=== PATIENT | male | born 1960 | race African-American/Black ===

== ENCOUNTER 2017-07-30 20:37 | Inpatient (IN) | payer MEDICAID, OTHER ==
[~2017-07-30] VITALS: Ht 175.3 cm; Wt 83.5 kg
[~2017-07-30 20:37] MED LIST: ACCU FS; ATOR20TA40 PO; CALC600C PO; INSU100S55 SC; MAGN400T11 PO; METFORMIN HYDROCHLORIDE PO; PHOS1PDR4 PO; Pantoprazole Sodium PO
[2017-07-30 20:40] VITALS: BP 143/88
--- NOTE | 2017-07-30 20:44 | NUR ---
BIBA TO ER BED 1
--- NOTE | 2017-07-30 20:45 | NUR ---
56/M BIBA W C/O GENERALIZED WEAKNESS AND FLULIKE SYMPTOMS X 2 DAYS. PT NOTED WITH TACHYPNEA AND SHALLOW RESPIRATIONS , 28RR EVEN WITH ACCESSORY MUSCLE USE, SATS 98% ON RA. GCS 15, AOX4. BS ON SCENE 355, ACCUCHECK 365. REPORTS N/V X1, DENIES SOB/CP/COUGH, DENIES ANY OTHER PAIN. IVF RUNNING WIDE OPEN. PMH: DM, HLD; RX: HUMALOG
[2017-07-30] MEDS ORDERED: NACL 0.9% 500 ML IV ONE ×2 (21:00)
[2017-07-30 21:43] LABS: HEMATOCRIT 50.5 % (36-52); HEMOGLOBIN 15.9 g/dL (12.0-18.0); MEAN CORPUSCULAR HEMOGLOBIN 31 pg (27-31); MEAN CORPUSCULAR HGB CONC 32 g/dL (33-37); MEAN CORPUSCULAR VOLUME 97 fL (80-94); PLATELET COUNT (AUTO) 178 K/uL (140-450); RED BLOOD CELL COUNT(AUTO) 5.21 MIL/uL (4.20-6.10); RED CELL DISTRIBUTION WIDTH 13.5 % (11.6-13.7)
--- NOTE | 2017-07-30 22:00 | NUR ---
Patient appears to be resting comfortably in bed. Vital Signs within normal limits. Respirations even, tachypneic 28 RR, ER MD Cavazos aware
[2017-07-30 22:05] LABS: ALBUMIN 3.7 g/dL (3.4-5.0); ANION GAP 35.2 (8-16); ASPARTATE AMINOTRANSFERASE 12 U/L (15-37); CHLORIDE 105 mmol/L (98-107); CREATININE 1.8 mg/dL (0.7-1.3); GFR ARICAN-AMERICAN 51 mL/min (>90); GLUCOSE 385 mg/dL (74-106); POTASSIUM 5.3 mmol/L (3.5-5.1); SODIUM SERUM 141 mmol/L (136-145); TOTAL BILIRUBIN 0.5 mg/dL (0.0-1.0); UREA NITROGEN, BLOOD 17 mg/dL (7-18)
[2017-07-30 22:09] LABS: CARBON DIOXIDE 6.1 mmol/L (21-32)
[2017-07-30] MEDS ORDERED: SODIUM BICARBONATE 8.4% 100 MEQ in NACL 0.9% 1,000 ML IV SCH (22:10)
[2017-07-30 22:11] LABS: LYMPHOCYTES % (MANUAL) 3 % (20-46); MONOCYTES % (MANUAL) 5 % (5-12)
[2017-07-30] MEDS ORDERED: SODIUM BICARBONATE 8.4% 50 MEQ/50 ML VIAL ONE (22:26)
[2017-07-30] MEDS ORDERED: INSULIN REGULAR, HUMAN 100 UNIT/ML VIAL SUBQ ONE (23:30)
[2017-07-30 23:33] LABS: ACETONE, SERUM SMALL (NEGATIVE)
[2017-07-31] VITALS (14 sets, daily range): BP systolic 108–153; BP diastolic 70–91
[2017-07-31] MEDS ORDERED: NACL 0.9% 1,000 ML IV SCH (00:11)
[2017-07-31] MEDS ORDERED: MORPHINE SULFATE 2 MG/ML SYR IVP PRN (00:15)
--- NOTE | 2017-07-31 00:30 | NUR ---
Patient will be admitted to [facility]. Admited to ICU. Will go to room 3. Belongings list completed. BEDSIDE Report to IRVIN CARIAS. IV PATENT AND INFUSING
--- NOTE | 2017-07-31 00:45 | NUR ---
PT TRANSFERRED FROM ER VIA [facility] WITH 2 NURSES AT 0045. DX WITH DKI. HX OF DM. PT IS AWAKE, ALERT AND ORIENTED X4, VERBALLY RESPONSIVE. NO FEVER. PT IS WITH KUSSMAUL BREATHING, DEEP AND LABORED. BILATERAL LUNG SOUND CLEAR. ACTIVE BOWEL SOUND FROM ALL 4 QUADS. HEART SOUND S1, S2 NOTED. PERIPHERAL LINE TO RIGHT HAND WITH NS WITH SODIUM BICARBONATE 100MEQ. SKIN IS INTACT. BED IS LOW POSITION, HOB ELEVATED 30 DEGREE, CALL LIGHT WITHIN REACH.
--- NOTE | 2017-07-31 01:03 | NUR ---
RECEIVED AND VERIFIED ADMISSION ORDERS FROM DR. RIOS, ON-CALL FOR DR. TOVAR. WILL CARRY OUT.
[2017-07-31] MEDS: ALBUTEROL 0.083% 2.5 MG/3 ML NEBU INH SCH ×4 (01:04→18:37)
[2017-07-31] MEDS ORDERED: DEXTROSE 50% 50 ML SYR IVP PRN (01:30)
[2017-07-31] MEDS ORDERED: BLOOD GLUCOSE MONITORING 1 DEV DEV FS SCH (01:30)
[2017-07-31] MEDS ORDERED: INSULIN HUMAN REGULAR 100 UNITS in NACL 0.9% 100 ML IV SCH ×2 (01:30→01:40)
--- NOTE | 2017-07-31 01:33 | NUR ---
ABG RESULTS REPORTED TO DR. RIOS. NO NEW ORDER AT THIS TIME.
--- NOTE | 2017-07-31 01:40 | NUR ---
BS CHECKED 284 NOTED. PT IS ON INSULIN DRIP 8.1 UNITS/HR. PT IS NO ACUTE DISTRESS NOTED. KUSSMAUL BREATHING NOTED.
--- NOTE | 2017-07-31 02:40 | NUR ---
BS CHECKED 246 NOTED. PT IS ON INSULIN DRIP 8.1 UNITS/HR. PT STOPPED THE KUSSMAUL BREATHING. NO DEEP AND LABORED BREATH NOTED.
--- NOTE | 2017-07-31 03:40 | NUR ---
BS CHECKED 242 NOTED. PT IS IN ASLEEP, AROUSABLE TO VOICE. NO ACUTE DISTRESS NOTE. ST ON THE MONITOR. DENIES PAIN.
--- NOTE | 2017-07-31 04:40 | NUR ---
BS CHECKED 164 NOTED. NO ACUTE DISTRESS NOTED.
--- NOTE | 2017-07-31 05:00 | NUR ---
INSULIN DRIP DECREASED TO 0.05 UNIT/KG/HR, 4.01ML/HR. STARTED D5 1/2NS 150ML/HR PROTOCOL.
--- NOTE | 2017-07-31 05:40 | NUR ---
BS CHECKED 188 NOTED. PT ON INSULIN DRIP AND D5 1/2NS. PT IS IN ASLEEP. NO ACUTE DISTRESS NOTED.
[2017-07-31 05:48] LABS: HEMATOCRIT 49.2 % (36-52); HEMOGLOBIN 15.7 g/dL (12.0-18.0); MEAN CORPUSCULAR HEMOGLOBIN 31 pg (27-31); MEAN CORPUSCULAR HGB CONC 32 g/dL (33-37); MEAN CORPUSCULAR VOLUME 97 fL (80-94); PLATELET COUNT (AUTO) 190 K/uL (140-450); RED BLOOD CELL COUNT(AUTO) 5.08 MIL/uL (4.20-6.10); RED CELL DISTRIBUTION WIDTH 13.6 % (11.6-13.7); WHITE BLOOD COUNT (AUTO) 17.8 K/uL (4.8-10.8)
[2017-07-31] MEDS: BLOOD GLUCOSE MONITORING 1 DEV DEV FS SCH ×18 (06:00→23:09)
[2017-07-31 06:39] LABS: MAGNESIUM 2.1 mg/dL (1.8-2.4); PHOSPHORUS 1.8 mg/dL (2.5-4.9)
--- NOTE | 2017-07-31 06:40 | NUR ---
BS CHECKED 171 NOTED.PT IS ON INSULIN DRIP AND D5 1/2NS. NO ACUTE DISTRESS NOTED. ST ON THE DRILL RUNNER.
[2017-07-31 06:46] LABS: ALBUMIN 3.4 g/dL (3.4-5.0); ANION GAP 29.8 (8-16); CARBON DIOXIDE 10.3 mmol/L (21-32); CREATININE 1.5 mg/dL (0.7-1.3); POTASSIUM 4.1 mmol/L (3.5-5.1); TOTAL BILIRUBIN 0.5 mg/dL (0.0-1.0)
--- NOTE | 2017-07-31 07:20 | NUR ---
REPORT GIVEN TO BRAXTON.
[2017-07-31 07:51] LABS: LYMPHOCYTES % (MANUAL) 9 % (20-46); MONOCYTES % (MANUAL) 7 % (5-12)
--- NOTE | 2017-07-31 08:32 | NUR ---
SEEN BY DR. ZAVALA. WILL FOLLOW UP ON ORDER.
[2017-07-31] MEDS ORDERED: ACETAMINOPHEN 325 MG TAB PO PRN (08:45)
[2017-07-31] MEDS: ENOXAPARIN 30 MG/0.3 ML SYR SUBQ SCH (08:57)
--- NOTE | 2017-07-31 08:57 | NUR ---
RESIDENT WAS SHIVERING. PT C/O COLD. BODY TEMPERATURE WAS 98.3 DEGREE F. P 104, R 18 BP 124/73. COVERED WITH BLANKET. WILL CONTINUE TO MONITOR.
--- NOTE | 2017-07-31 09:01 | NUR ---
PATIENT HAS BEEN SCREENED AND CATEGORIZED HIGH NUTRITION RISK. PATIENT WILL BE SEEN WITHIN 1-2 DAYS OF ADMISSION. 07/31/18-08/01/[address]
--- NOTE | 2017-07-31 09:41 | NUR ---
RECEIVED CALL FROM SISTER DARRIAN. UPDATED PT CONDITION.
[2017-07-31] MEDS: DEXT 5% / NACL 0.45% 1,000 ML IV SCH ×5 (09:50→21:13)
[2017-07-31 10:07] LABS: ANION GAP 21.6 (8-16); CARBON DIOXIDE 14.1 mmol/L (21-32); CREATININE 1.7 mg/dL (0.7-1.3); POTASSIUM 3.7 mmol/L (3.5-5.1)
[2017-07-31 10:23] LABS: APPEARANCE,URINE CLEAR (CLEAR); BILIRUBIN,URINE 1+ (NEGATIVE); BLOOD, URINE 2+ (NEGATIVE); COLOR,URINE YELLOW (YELLOW); LEUKOCYTE ESTERASE ,URINE NEGATIVE (NEGATIVE); NITRITE, URINE NEGATIVE (NEGATIVE); PH,URINE 5.5 (5.0-9.0); UGLUCOSE 1+ (NEGATIVE)
--- NOTE | 2017-07-31 10:24 | NUR ---
CM NOTE INITIAL REVIEW FAXED TO [facility] [phone] RAYSA # [phone]
--- NOTE | 2017-07-31 10:33 | NUR ---
SEEN BY DR. HERNANDEZ. WILL FOLLOW UP ON ORDER.
[2017-07-31 10:35] LABS: RBC,URINE 3-10 (FEW) /HPF (0-5); WBC,URINE 0-5 (RARE) /HPF (0-5)
[2017-07-31 10:36] LABS: HYALINE CASTS, URINE 0-2 /LPF (None Seen)
--- NOTE | 2017-07-31 11:16 | NUR ---
PT RESTING IN BED COMFORTABLY. NO RESPIRATORY DISTRESS NOTED. ABLE TO BRUSH HIS TEETH ON HIS OWN. KEPT PT CLEAN AND DRY.
[2017-07-31] MEDS: ONDANSETRON 4 MG/2 ML VIAL IVP PRN ×2 (12:52→20:12)
--- NOTE | 2017-07-31 12:54 | NUR ---
PT THREW UP WHILE EATING LUNCH. ZOFRAN IVP ADMINISTERED PER ORDER. KEPT PT ON COMFORTABLE POSITION. STOPPED FEEDING. WILL CONTINUE TO MONITOR.
--- NOTE | 2017-07-31 14:02 | NUR ---
PT SLEEPING IN BED. NO RESPIRATORY DISTRESS. NO CHANGE IN LOC. ST ON MONITOR. WILL CONTINUE TO MONITOR.
[2017-07-31 14:54] LABS: ANION GAP 16.9 (8-16); CARBON DIOXIDE 17.3 mmol/L (21-32); CREATININE 1.5 mg/dL (0.7-1.3); POTASSIUM 3.2 mmol/L (3.5-5.1)
--- NOTE | 2017-07-31 16:56 | NUR ---
PT RESTING IN BED. UNRESPONSIVE. HR 142, BP 115/61 RR 16 SPO2 99%. ON CONTINUOUS MONITORING. Addendum: 07/31/17 at 1703 by Jolene Neil RN WRONG CHARTING.
--- NOTE | 2017-07-31 17:00 | NUR ---
DR. QUEZADA AND RT AT BEDSIDE FOR BRONCHOSCOPY. PROCEDURE ON PROCESS. Addendum: 07/31/17 at 1703 by Jolene Neil RN WRONG CHARTING
[2017-07-31 18:05] LABS: ANION GAP 14.9 (8-16); CARBON DIOXIDE 20.4 mmol/L (21-32); CREATININE 1.4 mg/dL (0.7-1.3); POTASSIUM 3.3 mmol/L (3.5-5.1)
[2017-07-31] MEDS ORDERED: POTASSIUM CHLORIDE 10 MEQ TABER PO SCH (18:55)
--- NOTE | 2017-07-31 18:55 | NUR ---
SR. KRUSE NOTIFIED OF 1735 BMP RESULTS. GAVE AN ORDER.
--- NOTE | 2017-07-31 19:30 | NUR ---
RECEIVED REPORT FROM MORNING SHIFT MICHELLE.RN PT IS AWAKE, ALERT AND ORIENTED X4, VERBALLY RESPONSIVE. NO FEVER. PT COMPLAINS FEELING NAUSEA AT THIS TIME. BILATERAL LUNG SOUND CLEAR. ACTIVE BOWEL SOUND FROM ALL 4 QUADS. HEART SOUND S1, S2 NOTED. PERIPHERAL LINE TO RIGHT HAND WITH NS 200ML/HR AND CONTINUOUS INSULIN DRIP. SKIN IS INTACT. BED IS LOW POSITION, HOB ELEVATED 30 DEGREE, CALL LIGHT WITHIN REACH.
--- NOTE | 2017-07-31 19:30 | NUR ---
ENDORSED TO NOC SHIFT RN FOR CONTINUITY OF CARE. PT ON STABLE CONDITION.
--- NOTE | 2017-07-31 20:30 | NUR ---
ADMINISTERED SCHEDULED MEDICATION ORDERED AND GIVEN PRN ZOFRAN D/T PT COMPLAINED ABOUT FEELING NAUSEA. NO ACUTE DISTRESS NOTED. SR ON THE MONITOR. PT IS ON INSULIN DRIP AND D5 1/2 NS. WILL CONTINUE TO MONITOR.
[2017-07-31 20:54] LABS: MAGNESIUM 1.7 mg/dL (1.8-2.4); PHOSPHORUS 1.6 mg/dL (2.5-4.9)
[2017-07-31 21:31] LABS: ANION GAP 13.5 (8-16); CARBON DIOXIDE 21.6 mmol/L (21-32); CREATININE 1.4 mg/dL (0.7-1.3); POTASSIUM 3.1 mmol/L (3.5-5.1)
--- NOTE | 2017-07-31 23:00 | NUR ---
PT IS IN ASLEEP, AROUSABLE TO VOICE. NO ACUTE DISTRESS NOTE. BS CHECKED EVERY HOURLY, CONTINUOUS INSULIN DRIP AND D5 1/2NS ARE RUNNING. WILL CONTINUE TO MONITOR.
[2017-08-01] VITALS (10 sets, daily range): BP systolic 114–128; BP diastolic 49–91
[2017-08-01] MEDS: BLOOD GLUCOSE MONITORING 1 DEV DEV FS SCH ×13 (00:09→20:48)
[2017-08-01] MEDS: ONDANSETRON 4 MG/2 ML VIAL IVP PRN ×4 (00:42→23:35)
--- NOTE | 2017-08-01 00:50 | NUR ---
PT AWAKE AND ALERT, COMPLAINED ABOUT FEELING NAUSEA AND HEADACHE 3/10. ADMINISTERED PRN ZOFRAN AND TYLENOL ORDERED, TOLERATED WELL. WILL CONTINUE TO MONITOR.
[2017-08-01 01:06] LABS: ANION GAP 13.2 (8-16); CARBON DIOXIDE 20.8 mmol/L (21-32); CREATININE 1.3 mg/dL (0.7-1.3)
[2017-08-01] MEDS: ALBUTEROL 0.083% 2.5 MG/3 ML NEBU INH SCH ×2 (01:13→06:50)
--- NOTE | 2017-08-01 01:50 | NUR ---
PT IS IN ASLEEP, AROUSABLE TO VOICE. DENIES HEADACHE. NO ACUTE DISTRESS. SR ON THE SUPERVISOR INTERNATIONAL RESERVATIONS.
[2017-08-01] MEDS: DEXT 5% / NACL 0.45% 1,000 ML IV SCH (02:29)
--- NOTE | 2017-08-01 03:30 | NUR ---
PT IS IN ASLEEP, AROUSABLE TO VOICE. NO ACUTE DISTRESS NOTED. SR ON THE MONITOR. BP IS STABLE. HOURLY BS CHECKED. PT ON INSULIN DRIP. WILL CONTINUE TO MONITOR.
[2017-08-01 06:32] LABS: BASOPHILS # (AUTO) 0.2 K/uL (0.00-0.22); BASOPHILS % (AUTO) 2.3 % (0.0-2.0); EOSINOPHILS # (AUTO) 0.1 K/uL (0-0.4); EOSINOPHILS % (AUTO) 0.9 % (0.0-4.0); HEMATOCRIT 40.9 % (36-52); HEMOGLOBIN 13.6 g/dL (12.0-18.0); LYMPHOCYTES # (AUTO) 0.8 K/uL (2.0-11.5); LYMPHOCYTES % (AUTO) 8.4 % (20.5-51.1); MEAN CORPUSCULAR HEMOGLOBIN 32 pg (27-31); MEAN CORPUSCULAR HGB CONC 33 g/dL (33-37); MEAN CORPUSCULAR VOLUME 95 fL (80-94); MONOCYTES # (AUTO) 0.3 K/uL (0.8-1.0); MONOCYTES % (AUTO) 3.3 % (1.7-9.3); NEUTROPHILS # (AUTO) 8.1 K/uL (1.8-7.7); NEUTROPHILS % (AUTO) 85.1 % (42.2-75.2); PLATELET COUNT (AUTO) 161 K/uL (140-450); RED BLOOD CELL COUNT(AUTO) 4.31 MIL/uL (4.20-6.10); RED CELL DISTRIBUTION WIDTH 13.6 % (11.6-13.7); WHITE BLOOD COUNT (AUTO) 9.5 K/uL (4.8-10.8)
[2017-08-01 06:55] LABS: ANION GAP 14.1 (8-16); CARBON DIOXIDE 19.9 mmol/L (21-32); CREATININE 1.2 mg/dL (0.7-1.3)
--- NOTE | 2017-08-01 07:30 | NUR ---
REPORT GIVEN TO KUN.
--- NOTE | 2017-08-01 07:30 | NUR ---
RECEIVED BEDSIDE REPORT FROM PM JV MOMIN. PT IS AWAKE AAOX4. LUNG SOUND CLEAR BILATERALLY. PT IS ON RA WITH NO S/S OF RESPIRATORY DISTRESS. ABD SOFT AND NON TENDER. ACTIVE BOWEL SOUND AUSCULTATED AT ALL 4 QUADRANTS. IV SITE NOTED AT RT HAND PATENT AND NO S/S OF INFECTION. PT IS ON INSULIN DRIP AND D5 0.45NS. SKIN WARM TO TOUCH. SAFETY PRECAUTION IN PLACE WITH HOB AT 30 DEGREES, BED AT LOWEST POSITION, CALL LIGHT WITHIN REACH. WILL CONTINUE TO MONITOR.
[2017-08-01] MEDS ORDERED: DEXTROSE 50% 50 ML SYR IVP PRN (08:45)
--- NOTE | 2017-08-01 08:45 | NUR ---
DR. ZAVALA AT BED SIDE , EXAM THE PT.
[2017-08-01] MEDS ORDERED: ACETAMINOPHEN/CODEINE 300/30MG 1 TAB PO PRN (08:50)
[2017-08-01] MEDS ORDERED: POTASSIUM CHLORIDE 10 MEQ TABER PO SCH (09:00)
[2017-08-01] MEDS: INSULIN LANTUS 100 UNITS/ML 10 ML VIAL SUBQ SCH (09:00)
--- NOTE | 2017-08-01 09:00 | NUR ---
ORDERED RECEIVED D/C INSULIN DRIP AND DOWNGRADE TO MED SURG.
[2017-08-01] MEDS: ENOXAPARIN 30 MG/0.3 ML SYR SUBQ SCH (10:06)
[2017-08-01] MEDS: NACL 0.45% 1,000 ML IV SCH (10:18)
--- NOTE | 2017-08-01 10:40 | NUR ---
PATIENT TRANSFERRED TO MS FLOOR RM 110B. BEDSIDE REPORT GIVEN TO JV CORMIER. PT IS STABLE AT THIS TIME.
--- NOTE | 2017-08-01 10:45 | NUR ---
RECEIVED PATIENT ON UNIT VIA WHEELCHAIR. PT IS AAOX4, AMBULATORY, SKIN IS INTACT, IV IS ON THE RIGHT FA, PATENT, INTACT, FLUSHING WELL, NO S/S OF RESPIRATORY DISTRESS OR DISCOMFORT NOTED, DISCUSSED PLAN OF CARE WITH PT, PT VERBALIZED UNDERSTANDING, ORIENTED PT TO ROOM, SAFETY/FALL PRECAUTIONS ARE IN PLACE, CALL LIGHT IS WITHIN REACH, WILL CONTINUE TO MONITOR. Addendum: 08/01/17 at 1107 by Princess Geiger RN REPORT RECEIVED FROM RN. JYOTI FROM ICU.
--- NOTE | 2017-08-01 12:45 | NUR ---
PATIENT SLEEPING IN BED AT THIS TIME, CALL LIGHT IS WITHIN REACH.
--- NOTE | 2017-08-01 12:52 | NUR ---
CM NOTE CONCURRENT REVIEW FAXED TO [facility] [phone] RAYSA # [phone]
[2017-08-01] MEDS: CLINDAMYCIN 300 MG in DEXTROSE 5% 50 ML IV SCH ×3 (13:07→23:26)
[2017-08-01] MEDS: INSULIN LISPRO SLIDING SCALE 100 UNITS/ML VIAL SUBQ PRN ×3 (13:11→20:53)
--- NOTE | 2017-08-01 15:05 | NUR ---
PT RESTING IN BED AT THIS TIME, WATCHING TV, CALL LIGHT WITHIN REACH.
--- NOTE | 2017-08-01 17:29 | NUR ---
08/01/2017 RD INITIAL ASSESSMENT COMPLETED PLEASE REFER TO NUTRITION ASSESSMENT UNDER CARE ACTIVITY FOR ESTIMATED NUTRITIONAL NEEDS. 1.CONTINUE ANTIHYPERGLYCEMIC MEDS AND CCHO 60 GM DIET FOR GLUCOSE CONTROL. RD TO FOLLOW-UP IN 2-3 DAYS PATIENT IS HIGH RISK. BALTAZAR DAVID, NADJA
--- NOTE | 2017-08-01 18:15 | NUR ---
PATIENT STATED HE VOMITED AFTER HAVING ABOUT 10% OF HIS DINNER. WILL MEDICATE WITH ZOFRAN AT THIS TIME.
--- NOTE | 2017-08-01 19:19 | NUR ---
PT STABLE AT THIS TIME. ENDORSED PT TO NAVY DIVER NURSE FOR CONTINUITY OF CARE.
--- NOTE | 2017-08-01 19:31 | NUR ---
RECEIVED FROM AM RN IN BED SLEEPING. WAKES UP EASILY WHEN AWAKENED. VERBALIZES WELL. CALL LIGHT WITH IN REACH. NO SOB. IVF SITE INTACT. DENIES ANY PAIN AT THIS TIME. NO NOTED S/S OF HYPERGLYCEMIA/HYPOGLYCEMIA.
--- NOTE | 2017-08-01 23:41 | NUR ---
PT. REQUESTED FOR ANTI NAUSEA RT FEELING NAUSEOUS. MEDICATED WITH ZOFRAN IVP ORDERED. VERBALIZES WELL. A/O X 4. PT. PROVIDED WITH MIDNIGHT SNACK.
--- NOTE | 2017-08-02 00:59 | NUR ---
SLEEPING AT THIS TIME. NO RESTLESSNESS. CALL LIGHT WITH IN REACH.
--- NOTE | 2017-08-02 04:30 | NUR ---
SLEEPING. NO RESTLESSNESS. CALL LIGHT WITH IN REACH. NO S/S OF HYPERGLYCEMIA OR HYPOGLYCEMIA.
[2017-08-02] MEDS: NACL 0.45% 1,000 ML IV SCH (04:45)
[2017-08-02] MEDS: CLINDAMYCIN 300 MG in DEXTROSE 5% 50 ML IV SCH ×2 (05:25→11:59)
[2017-08-02] MEDS: BLOOD GLUCOSE MONITORING 1 DEV DEV FS SCH ×2 (05:26→12:08)
--- NOTE | 2017-08-02 06:08 | NUR ---
AWAKE AND WATCHING TV. ABLE TO VERBALIZE WELL. BLOOD SUGAR PER FINGERSTICK IS WNL. NO INSULIN COVERAGE GIVEN.
[2017-08-02 06:55] LABS: BASOPHILS # (AUTO) 0.2 K/uL (0.00-0.22); BASOPHILS % (AUTO) 3.6 % (0.0-2.0); EOSINOPHILS # (AUTO) 0.1 K/uL (0-0.4); HEMATOCRIT 39.5 % (36-52); HEMOGLOBIN 13.5 g/dL (12.0-18.0); LYMPHOCYTES # (AUTO) 1.3 K/uL (2.0-11.5); LYMPHOCYTES % (AUTO) 18.8 % (20.5-51.1); MEAN CORPUSCULAR HEMOGLOBIN 32 pg (27-31); MEAN CORPUSCULAR HGB CONC 34 g/dL (33-37); MEAN CORPUSCULAR VOLUME 94 fL (80-94); MONOCYTES # (AUTO) 0.5 K/uL (0.8-1.0); NEUTROPHILS # (AUTO) 4.7 K/uL (1.8-7.7); NEUTROPHILS % (AUTO) 68.6 % (42.2-75.2); PLATELET COUNT (AUTO) 136 K/uL (140-450); RED BLOOD CELL COUNT(AUTO) 4.21 MIL/uL (4.20-6.10); RED CELL DISTRIBUTION WIDTH 13.4 % (11.6-13.7); WHITE BLOOD COUNT (AUTO) 6.8 K/uL (4.8-10.8)
[2017-08-02 07:12] LABS: ANION GAP 12.6 (8-16); CARBON DIOXIDE 22.6 mmol/L (21-32); POTASSIUM 3.2 mmol/L (3.5-5.1)
--- NOTE | 2017-08-02 07:30 | NUR ---
RECEIVED PT REPORT FROM TOOL SALVAGE WORKER RN. PT IS AWAKE, ALERT, AND OX4. PT IS ABLE TO VERBALIZES NEEDS. CALL LIGHT WITH IN REACH. NO S/S OF ACUTE DISTRESS NOTED. IV SITE NOTED TO THE RIGHT HAND 20 G, DRY, INTACT AND PATENT. DENIES ANY PAIN AT THIS TIME. NO S/S OF HYPERGLYCEMIA/HYPOGLYCEMIA NOTED.
--- NOTE | 2017-08-02 07:32 | NUR ---
ENDORSED TO THE NEXT RN FOR CONTINUITY OF CARE. AWAKE AND ALERT. NO COMPLAINTS DONE.
[2017-08-02] MEDS: ONDANSETRON 4 MG/2 ML VIAL IVP PRN (07:39)
[2017-08-02 08:00] VITALS: BP 134/89
[2017-08-02] MEDS: INSULIN LANTUS 100 UNITS/ML 10 ML VIAL SUBQ SCH (08:59)
[2017-08-02] MEDS: ENOXAPARIN 30 MG/0.3 ML SYR SUBQ SCH (09:00)
[2017-08-02] MEDS ORDERED: POTASSIUM CHLORIDE 10 MEQ TABER PO SCH (09:15)
[2017-08-02] MEDS ORDERED: MAG SULF 2000 MG/WATER PREMIX 50 ML IV SCH (09:15)
--- NOTE | 2017-08-02 11:25 | NUR ---
CM NOTE CONCURRENT REVIEW AND DISCHARGE SUMMARY FAXED TO [facility] [phone] RAYSA # [phone]
--- NOTE | 2017-08-02 12:00 | NUR ---
PT EATING LUNCH, INSULIN 6 UNITS GIVEN. PT TOLERATED WELL, DENIES ANY NAUSEA AND VOMITING AT THIS TIME.
[2017-08-02] MEDS: INSULIN LISPRO SLIDING SCALE 100 UNITS/ML VIAL SUBQ PRN (12:40)
[2017-08-02] MEDS ORDERED: INSU100S53 SC (13:06)
[2017-08-02] MEDS ORDERED: CLIN300C6 PO (13:07)
--- NOTE | 2017-08-02 13:30 | NUR ---
PT IS DISCHARGED PER MD ORDER. DISCHARGE INSTRUCTIONS AND MEDICATION TEACHING GIVEN. PT VERBALIZED UNDERSTANDING. IV DC'ED, TIP INTACT, PRESSURE APPLIED. PT DENIES PAIN, NAUSEA, AND VOMITING. NO S/S OF ACUTE DISTRESS NOTED, BREATHING EVEN AND UNLABORED. PRESCRIPTIONS PROVIDED. PT IS AWARE THAT HE NEEDS TO MAKE AN APPOINTMENT WITH PCP VALENTINA AND WITHIN 1 WEEK OF DISCHARGE. PT LEFT IN STABLE CONDITION AND WITH ALL HER BELONGINGS. WALKED PT TO THE LOBBY.
== END 2017-08-02 13:30 | disposition home or self-care (01) | DRG 420 ==
LOC: MED 20:37 → MIC 07-31 00:15 → MTU 08-01 10:00
PROVIDERS: ADMIT Hospitalist; ATTEND Hospitalist
DX: E11.10 Type 2 diabetes mellitus with ketoacidosis without coma (principal); N17.9 Acute kidney failure, unspecified; E86.0 Dehydration; E78.5 Hyperlipidemia, unspecified; E83.42 Hypomagnesemia; E87.6 Hypokalemia; K04.7 Periapical abscess without sinus; Z79.4 Long term (current) use of insulin; Z79.899 Other long term (current) drug therapy
CPT/HCPCS: 36415; 36600; 71045; 80048; 80053; 81001; 82009; 82803; 82948; 83036; 83735; 84100; 85025; 87081; 87804; 94640; 96365; 96366; 99291; J1650; J1815; J2405; J3475; J3490; J7030; J7060; J7613

== ENCOUNTER 2019-02-07 08:10 | Emergency (ER) | payer OTHER ==
[~2019-02-07] VITALS: Ht 175.3 cm; Wt 90.7 kg
[~2019-02-07 08:10] MED LIST changes: +CLIN300C6 PO; +INSU100S53 SC; -INSU100S55 SC
--- NOTE | 2019-02-07 08:10 | NUR ---
PT PLACED IN BED 11 BY EMS.
[2019-02-07 08:16] VITALS: BP 136/96
--- NOTE | 2019-02-07 08:20 | NUR ---
PT BIBA C/O A HYPOGLYCEMIA EPISODE. PER EMS, BS WAS 69 UPON CALLING 911 AFTER HE ATE A CHOCOLATE, UPON EMS ARRIVAL PT HAD TREMORS, UNSTEADY GAIT AND SLURRED SPEACH. CURRENT BS 101, PT ALERT AND ORIENTED TO PERSON, PLACE, TIME AND EVENT. VSS. ERMD TO EVALUATE PT.
--- NOTE | 2019-02-07 09:25 | NUR ---
CURRENT BLOOD SUGAR IS 144; DOCTOR NAKIA INFORMED.
[2019-02-07 09:53] VITALS: BP 133/76
--- NOTE | 2019-02-07 09:54 | NUR ---
Patient discharged with v/s stable. Written and verbal after care instructions given and explained. Patient verbalized understanding. Ambulatory with steady gait. All questions addressed prior to discharge. Advised to follow up with PMD.
== END 2019-02-07 09:54 | disposition home or self-care (01) ==
LOC: MED 08:10
DX: E11.649 Type 2 diabetes mellitus with hypoglycemia without coma (principal); Z79.4 Long term (current) use of insulin; Z79.84 Long term (current) use of oral hypoglycemic drugs; Z79.899 Other long term (current) drug therapy
CPT/HCPCS: 99282

== ENCOUNTER 2019-02-10 00:25 | Emergency (ER) | payer OTHER ==
[~2019-02-10] VITALS: Ht 175.3 cm; Wt 90.7 kg
[2019-02-10 00:25] VITALS: BP 143/95
--- NOTE | 2019-02-10 00:35 | NUR ---
58 YO M BIBA FROM HOME C/O HYPOGLYCEMIA. PER EMS, BS WAS 51 ON SITE. PT WAS FOUND DIAPHORETIC, SHAKING AND UNABLE TO SPEAK CLEARLY. PT WAS GIVEN 15 GRAMS OF ORAL SUGAR ON SITE. -- PT ARRIVES AWAKE, A/O X 4. SKIN IS COOL, DRY, NORMAL COLOR. PT STATES HE FEELS MUCH BETTER. SPEECH IS CLEAR. PT STATES HE ONLY TOOK 20 UNITS OF INSULIN TODAY BECAUSE HE DID NOT EAT VERY MUCH. -- BS: 67 PMH-- DMII RX-- BASAGLAR 28 UNITS BID, HUMULIN R 10 UNITS BID, METFORMIN BID
--- NOTE | 2019-02-10 00:50 | NUR ---
RECEIVED REPORT FROM JV LANE
--- NOTE | 2019-02-10 01:15 | NUR ---
PER PT HIS LAST MEAL WAS 0700 ON 02/09/19 AND PT FELL ASLEEP UNTIL ABOUT 2300. PT WOKE UP SWEATING, SOAKED IN URINE, HAD SLURRED SPEECH AND WAS ATTEMPTING TO CALL FOR HELP. PT SISTER AND FATHER FOUND HIM DIAPHORETIC AND UNABLE TO TALK AND CALLED 911. PT CURRENTLY A&O X [address], TIME, AND SITUATION. VSS. ALL NEEDS MET AT THIS TIME. WILL CONTINUE TO MONITOR.
[2019-02-10 01:23] LABS: BASOPHILS % (AUTO) 0.1 % (0.0-2.0); EOSINOPHILS % (AUTO) 0.1 % (0.0-4.0); HEMATOCRIT 49.6 % (36-52); HEMOGLOBIN 16.6 g/dL (12.0-18.0); LYMPHOCYTES # (AUTO) 1.1 K/uL (2.0-11.5); LYMPHOCYTES % (AUTO) 12.5 % (20.5-51.1); MEAN CORPUSCULAR HEMOGLOBIN 32 pg (27-31); MEAN CORPUSCULAR HGB CONC 33 g/dL (33-37); MEAN CORPUSCULAR VOLUME 96.2 fL (80-94); MONOCYTES # (AUTO) 0.4 K/uL (0.8-1.0); MONOCYTES % (AUTO) 4.5 % (1.7-9.3); NEUTROPHILS # (AUTO) 7.3 K/uL (1.8-7.7); NEUTROPHILS % (AUTO) 82.8 % (42.2-75.2); PLATELET COUNT (AUTO) 148 K/uL (140-450); RED BLOOD CELL COUNT(AUTO) 5.15 MIL/uL (4.20-6.10)
[2019-02-10 01:24] LABS: WHITE BLOOD COUNT (AUTO) 8.8 K/uL (4.8-10.8)
[2019-02-10 01:33] LABS: ANION GAP 9.3 (8-16); CARBON DIOXIDE 32.2 mmol/L (21-32); CREATININE 1.2 mg/dL (0.7-1.3); POTASSIUM 4.5 mmol/L (3.5-5.1)
[2019-02-10 01:40] LABS: ALBUMIN 3.7 g/dL (3.4-5.0); TOTAL BILIRUBIN 0.6 mg/dL (0.0-1.0)
[2019-02-10 02:05] VITALS: BP 138/97
--- NOTE | 2019-02-10 02:05 | NUR ---
Patient discharged with v/s stable. Written and verbal after care instructions given and explained regarding low blood sugar. Patient verbalized understanding. Ambulatory with steady gait. All questions addressed prior to discharge. Advised to follow up with PMD.
== END 2019-02-10 02:05 | disposition home or self-care (01) ==
LOC: MED 00:25
DX: E11.649 Type 2 diabetes mellitus with hypoglycemia without coma (principal); Z79.4 Long term (current) use of insulin; Z79.84 Long term (current) use of oral hypoglycemic drugs; Z79.899 Other long term (current) drug therapy
CPT/HCPCS: 36415; 71045; 80053; 82948; 84484; 85025; 93005; 99284; Q0092

== ENCOUNTER 2020-06-21 04:26 | Inpatient (IN) | payer OTHER, SELFPAY ==
[~2020-06-21] VITALS: Ht 175.3 cm; Wt 89.8 kg
[~2020-06-21 04:26] MED LIST changes: -CALC600C PO; +CALC600T53 PO
[2020-06-21 04:28] VITALS: BP 112/57
--- NOTE | 2020-06-21 04:30 | NUR ---
PT JAZMIN ALS. TAKEN TO BED 10
--- NOTE | 2020-06-21 05:00 | NUR ---
PT BIB [facility] AFTER BEING FOUND BY FAMILY MEMBERS UNRESPOSIVE. PT HAS HX OF DM, ACCUCHECK READ TOO HIGH. PT IS ALTERTED, DELAYED REACTION TO QUESTIONS AND ONLY ABLE TO ANSWER A FEW SELECT QUESTIONS. PT DOES NOT KNOW WHERE HE IS, DATE, OR TIME. ONLY ANSWERS HIS HEIGHT AND BIRTHDATE. PT HAS MILD WEAKNESS TO ALL EXTREMITIES, ABLE TO FOLLOW SIMPLE COMMANDS. RESPIRATIONS REGULAR EVEN AND UNLABORED. PT PLACED ON BEDSIDE MONITOR AND CURRENTLY ON ROOM AIR. BED IN LOWEST POSITION AND SIDERAIL UP FOR PT SAFETY. PT PLACED IN GOWN, PT WAS INCONTIENT OF URINE. NKA HX - DM
--- NOTE | 2020-06-21 05:25 | NUR ---
IV ESTABLISHED, ALL LABS DRAWN. LUPILLO COLLECTED AND UA COLLECTED. ALL WALKED DOWN TO LAB
--- NOTE | 2020-06-21 05:26 | NUR ---
PT O2 SAT 100% ON ROOM AIR ORDER FOR O2 BEING HELD AT THIS TIME.
--- NOTE | 2020-06-21 05:27 | NUR ---
EKG PERFORMED AT BEDSIDE. EKG READS SINUS TACHYCARDIA @ 102
--- NOTE | 2020-06-21 05:27 | NUR ---
EKG BEING PERFORMED BY EMT AT BEDSIDE
--- NOTE | 2020-06-21 05:43 | NUR ---
PT TAKEN TO RADIOLOGY
--- NOTE | 2020-06-21 06:13 | NUR ---
RETURNED FROM CT
--- NOTE | 2020-06-21 06:18 | NUR ---
CALLED LAB REGARDING RESULTS ON PT THAT WERE DRAWN AT 0445. FOUND THEM PLACED IN THE BACK WITHOUT BEING PROCESSED, THEY WILL PROCESS NOW
[2020-06-21 06:32] LABS: HEMATOCRIT 52.5 % (36-52); HEMOGLOBIN 16.2 g/dL (12.0-18.0); MEAN CORPUSCULAR HEMOGLOBIN 33 pg (27-31); MEAN CORPUSCULAR HGB CONC 31 g/dL (33-37); PLATELET COUNT (AUTO) 188 K/uL (140-450); RED BLOOD CELL COUNT(AUTO) 4.86 MIL/uL (4.20-6.10); RED CELL DISTRIBUTION WIDTH 14.4 % (11.6-13.7); WHITE BLOOD COUNT (AUTO) 23.7 K/uL (4.8-10.8)
--- NOTE | 2020-06-21 06:39 | NUR ---
PT MOVED TO ER BED 1
[2020-06-21 06:47] LABS: LYMPHOCYTES % (MANUAL) 3 % (20-46); MONOCYTES % (MANUAL) 4 % (5-12)
[2020-06-21 06:48] LABS: ALBUMIN 4.1 g/dL (3.4-5.0); ANION GAP 40.3 (8-16); ASPARTATE AMINOTRANSFERASE 26 U/L (15-37); CHLORIDE 92 mmol/L (98-107); CREATININE 3.2 mg/dL (0.6-1.3); GFR ARICAN-AMERICAN 26 mL/min (>90); MAGNESIUM 2.8 mg/dL (1.8-2.4); POTASSIUM 5.2 mmol/L (3.5-5.1); SALICYLATE 4.3 mg/dL (2.8-20.0); SODIUM SERUM 134 mmol/L (136-145); TOTAL BILIRUBIN 0.7 mg/dL (0.0-1.0)
[2020-06-21 06:51] LABS: CARBON DIOXIDE 6.9 mmol/L (21-32)
[2020-06-21 06:52] LABS: GLUCOSE 982 mg/dL (74-106)
[2020-06-21 06:53] LABS: UREA NITROGEN, BLOOD 65 mg/dL (7-18)
--- NOTE | 2020-06-21 07:29 | NUR ---
Pt report given to KAREN CARIAS. Transfer of care at this time.
[2020-06-21] MEDS ORDERED: DEXTROSE 50% 50 ML SYR IVP PRN (07:40)
[2020-06-21] MEDS ORDERED: INSULIN REGULAR, HUMAN 100 UNIT in NACL 0.9% 100 ML IV SCH ×2 (07:40)
[2020-06-21] MEDS ORDERED: NACL 0.9% 2,000 ML IV ONE (08:25)
[2020-06-21] MEDS ORDERED: ONDANSETRON 4 MG/2 ML VIAL IVP PRN (08:30)
[2020-06-21] MEDS ORDERED: MORPHINE SULFATE 4 MG/ML SYR IVP PRN (08:30)
[2020-06-21] MEDS ORDERED: ACETAMINOPHEN 325 MG TAB PO PRN (08:30)
[2020-06-21] MEDS ORDERED: HYDROmorphone 1 MG/ML AMP IVP PRN (08:30)
[2020-06-21] MEDS: BLOOD GLUCOSE MONITORING 1 DEV DEV FS SCH ×7 (09:00→23:59)
[2020-06-21 09:32] LABS: APPEARANCE,URINE CLEAR (CLEAR); BILIRUBIN,URINE NEGATIVE (NEGATIVE); BLOOD, URINE NEGATIVE (NEGATIVE); COLOR,URINE YELLOW (YELLOW); LEUKOCYTE ESTERASE ,URINE NEGATIVE (NEGATIVE); NITRITE, URINE NEGATIVE (NEGATIVE); PH,URINE 5.5 (5.0-9.0); UGLUCOSE 3+ (NEGATIVE)
[2020-06-21 09:50] LABS: BARBITURATE, URINE NEGATIVE ng/ml (NEG <=200); BENZODIAZEPINE, URINE NEGATIVE ng/mL (NEG <=200); CANNABINOID, URINE NEGATIVE ng/mL (NEG <=50); COCAINE, URINE NEGATIVE ng/mL (NEG <=300); OPIATE, URINE NEGATIVE ng/mL (NEG <=2000); PHENCYCLIDINE SCREEN,URINE NEGATIVE ng/mL (NEG <=25)
[2020-06-21 11:51] LABS: RBC,URINE 0-5 /HPF (0-5); WBC,URINE 0-5 /HPF (0-5)
[2020-06-21] MEDS ORDERED: NACL 0.9% 1,000 ML IV SCH (12:05)
--- NOTE | 2020-06-21 12:40 | NUR ---
Stable Insulin GTT inprogress at 10U Q HR Last accucheck unmeasurable (Hi) Has become more alert and responds to verbal stimuli and follow commands MD has seen To be admitted
[2020-06-21] MEDS: NACL 0.9% 1,000 ML IV SCH ×2 (12:41→19:35)
--- NOTE | 2020-06-21 17:42 | NUR ---
Patient stable. VSS Has become more easily aroused. Insulin gtt continues. Has been titrated up to 10 then back down to 5 where it is currently at. Has been admitted and Primary MD has seen.. Awaiting bed in ICU Have spoken to family and they wish to have social secretary see before Dc home regarding reacurring DKA and why. Consult requested
[2020-06-21] MEDS ORDERED: cefTRIAXone 1,000 MG VIAL ONE (18:11)
--- NOTE | 2020-06-21 19:45 | NUR ---
received pt in bed, non-verbal with insulin gtt infusing at 5u/hr. CM = ST WITHOUT ECTOPY. SKIN IS WARM AND DRY WITH RESPIRATIONS REGULAR AND UNLABORED AT 16 BPM. PAK CATHETER DRAINING LARGE AMOUNTS DARK KEO COLORED URINE.
--- NOTE | 2020-06-21 20:00 | NUR ---
IN BED WITH EYES CLOSED BUT IS RESTLESS. ASSISTED WITH POSITIONING FOR COMFORT. INSULI GTT CONTINUES TO RIGHT FOREARM
--- NOTE | 2020-06-21 22:00 | NUR ---
Patient appears to be resting comfortably in bed. Vital Signs within normal limits. Respirations even and unlabored.
--- NOTE | 2020-06-21 23:55 | NUR ---
NO CHANGE IN PATIENT CONDITION. PAK CATH DRAINED ADDITIONAL 1000 CC
[2020-06-22] MEDS: NACL 0.9% 1,000 ML IV SCH ×2 (01:25→08:12)
[2020-06-22] MEDS: BLOOD GLUCOSE MONITORING 1 DEV DEV FS SCH ×25 (01:28→23:15)
--- NOTE | 2020-06-22 02:00 | NUR ---
NO CHANGE IN PATIENT CONDITION. IS SLIGHTLY RESTLESS AT TIMES. RESTS WITH EYES CLOSED AND RESPIRATIONS REGULAR AND UNLABORED. AWAKEMS WITH TACTILE STIMULI
--- NOTE | 2020-06-22 04:00 | NUR ---
F/C DRAINED 1000 CC KEO COLORED URINE
--- NOTE | 2020-06-22 07:20 | NUR ---
REPORT RECEIVED FROM DENNY CARIAS, TRANSFER OF CARE AT THIS TIME
--- NOTE | 2020-06-22 08:00 | NUR ---
PT IS AOX4, BUT STILL APPEARS LETHARGIC AND CONFUSED. PT HAS DELAYED RESPONSES FOR ANSWERING QUESTIONS
--- NOTE | 2020-06-22 10:00 | NUR ---
PT ALERT AND AWAKE, BREATHING EVEN AND UNLABORED. NO DISTRESS NOTED.
--- NOTE | 2020-06-22 12:00 | NUR ---
PT ALERT AND AWAKE, BREATHING EVEN AND UNLABORED. NO DISTRESS NOTED.
--- NOTE | 2020-06-22 12:35 | NUR ---
SOCIAL WORK NOTE: Patient's Orientation Unable To Assess Information Provided By DARRIAN MASON Comments SW WAS UNABLE TO MEET PATIENT AT BEDSIDE DUE TO MEDICAL CONDITION. SW COMPLETED ASSESSMENT IWTH PATIENT'S SISTER. Otolaryngology Teacher, Realtionship and Phone Number DARRIAN MASON [phone] Healthcare Power of [employer] No Does Patient Have a POLST No Identifying Problems No Social Work Triggers Is A Social Work Consult Needed No Mandate Report Filed No Explanation Of Identifying Problems PATIENT IS A 59-YEAR-OLD MALE ADMITTED FOR DKA. PATIENT HAS PMHX OF DIABETES, HYPERLIPEDEMIA, GERD. Admitted From Home Pre-Admission Level Of Functioning Status Independent/Ambulatory Prior Resources/Services Used In Last 12 Months No Prior Resources Used Prior DME No Prior DME Used Dialysis Comments N/A Living Situation Apartment Lives With Family Patient Had Caregiver No Home Support No Caregiver Issues Financial Issues No Known Financial Issue Referral To The Financial Counselor Needed No Factors/Needs No D/C Needs Identified Pt/Rep Participated In Discharge Plan Yes Patient/Family Agress With Discharge Plan Yes Discharge Plan Comments TENTATIVE DISCHARGE PLAN IS FOR PATIENT TO RETURN HOME. DC Plan Status Initiated
[2020-06-22 13:46] LABS: ALBUMIN 3.5 g/dL (3.4-5.0); ANION GAP 19.5 (8-16); CARBON DIOXIDE 22.8 mmol/L (21-32); CREATININE 1.7 mg/dL (0.6-1.3); POTASSIUM 4.3 mmol/L (3.5-5.1); TOTAL BILIRUBIN 0.5 mg/dL (0.0-1.0)
--- NOTE | 2020-06-22 14:00 | NUR ---
PT RESTING WITH EYES CLOSED, BREATHING EVEN AND UNLABORED. NO DISTRESS NOTED.
[2020-06-22] MEDS ORDERED: DEXTROSE 50% 50 ML SYR IVP PRN (15:35)
--- NOTE | 2020-06-22 16:00 | NUR ---
PT RESTING WITH EYES CLOSED, BREATHING EVEN AND UNLABORED. NO DISTRESS NOTED.
--- NOTE | 2020-06-22 17:14 | NUR ---
06/22/20 RD INITIAL ASSESSMENT COMPLETED PLEASE REFER TO NUTRITION ASSESSMENT UNDER CARE ACTIVITY FOR ESTIMATED NUTRITIONAL NEEDS. 1. WHEN MEDICALLY APPROPRIATE, CONSIDER [address] C[address] DI[address]. RD TO FOLLOW-UP IN 2-3 DAYS, HIGH RISK BALTAZAR DAVID, NADJA
--- NOTE | 2020-06-22 18:00 | NUR ---
PT RESTING WITH EYES CLOSED, BREATHING EVEN AND UNLABORED. NO DISTRESS NOTED.
--- NOTE | 2020-06-22 19:15 | NUR ---
Report received from JV Price for continuation of care.
[2020-06-22 20:25] LABS: ANION GAP 22.9 (8-16); CARBON DIOXIDE 19.5 mmol/L (21-32); CREATININE 1.4 mg/dL (0.6-1.3); POTASSIUM 4.4 mmol/L (3.5-5.1)
--- NOTE | 2020-06-22 20:30 | NUR ---
pt resting in bed, locked and in lowest position, VSS, no acute distress noted.
--- NOTE | 2020-06-22 20:40 | NUR ---
FBS - 299 , increased insulin drip to 3U/hr per drip protocol.
[2020-06-22] MEDS ORDERED: INSULIN LANTUS 100 UNITS/ML 10 ML VIAL SUBQ SCH (21:00)
[2020-06-22] MEDS: INSULIN LISPRO SLIDING SCALE 100 UNITS/ML VIAL SUBQ PRN (21:04)
--- NOTE | 2020-06-22 21:40 | NUR ---
FBS - 273 , insulin drip continued at 3units/hr.
--- NOTE | 2020-06-22 21:45 | NUR ---
pt resting in bed, locked and in lowest position. Visible rise and fall of chest. RR even and unlabored. VSS.
--- NOTE | 2020-06-22 22:39 | NUR ---
VSS. No acute distress noted. visible rise and fall of chest.
--- NOTE | 2020-06-22 22:46 | NUR ---
Dr. Uribe updated w/ pt status. Per t/c w/ Dr. Uribe - administer 150 ML/HR 0.45%NS at this time. Dr. Uribe has put in lab orders for the morning.
[2020-06-22] MEDS: NACL 0.45% 1,000 ML IV SCH (23:15)
--- NOTE | 2020-06-22 23:15 | NUR ---
FBS - 214 , INSULIN DRIP DECREASED TO 2UNITS/HR .
[2020-06-23] MEDS: BLOOD GLUCOSE MONITORING 1 DEV DEV FS SCH ×18 (00:18→21:08)
--- NOTE | 2020-06-23 00:19 | NUR ---
FBS 216 - PER INSULIN DRIP - CONTINUED AT 2UNITS/HR
[2020-06-23 01:06] LABS: ANION GAP 15.7 (8-16); CARBON DIOXIDE 25.3 mmol/L (21-32); CREATININE 1.4 mg/dL (0.6-1.3)
--- NOTE | 2020-06-23 01:06 | NUR ---
FBS - 233 - INSULIN DRIP CONTINUED AT 2UNITS / HR
--- NOTE | 2020-06-23 01:30 | NUR ---
PT REPOSITIONED FOR COMFORT. NO ACUTE DISTRESS. VSS.
--- NOTE | 2020-06-23 02:15 | NUR ---
FBS 192 - INSULIN DECREASED TO 1 UNIT / HR AT THIS TIME.
--- NOTE | 2020-06-23 04:10 | NUR ---
FBS - 244 : INSULIN DRIP CONTINUED AT 2UNITS/HR
--- NOTE | 2020-06-23 04:22 | NUR ---
PT REPOSITIONED , NEW CARDIAC LEADS PLACED. NO ACUTE DISTRESS. PT PROVIDED WATER, TOLERATED WELL BY PT.
--- NOTE | 2020-06-23 05:03 | NUR ---
IVF 0.45% NS STILL INFUSING AT THIS TIME, WILL CONTINUE TO MONITOR FLUIDS FOR NEXT DOSE.
--- NOTE | 2020-06-23 05:55 | NUR ---
FBS - 255 : INCREASED INSULIN TO 3 UNITS/HR PER DRIP PROTOCOL.
[2020-06-23 06:23] LABS: LYMPHOCYTES % (AUTO) 5.8 % (20.5-51.1); MEAN CORPUSCULAR HEMOGLOBIN 34 pg (27-31); MEAN CORPUSCULAR HGB CONC 33 g/dL (33-37); MONOCYTES # (AUTO) 0.9 K/uL (0.8-1.0); MONOCYTES % (AUTO) 5.1 % (1.7-9.3); NEUTROPHILS % (AUTO) 89.1 % (42.2-75.2); PLATELET COUNT (AUTO) 158 K/uL (140-450); RED BLOOD CELL COUNT(AUTO) 4.76 MIL/uL (4.20-6.10); RED CELL DISTRIBUTION WIDTH 14.3 % (11.6-13.7); WHITE BLOOD COUNT (AUTO) 16.8 K/uL (4.8-10.8)
[2020-06-23 06:29] LABS: ANION GAP 14.9 (8-16); CARBON DIOXIDE 25.2 mmol/L (21-32); CREATININE 1.4 mg/dL (0.6-1.3); POTASSIUM 4.1 mmol/L (3.5-5.1)
--- NOTE | 2020-06-23 06:40 | NUR ---
EMPTIED 700 ML OF YELLOW URINE .
--- NOTE | 2020-06-23 06:45 | NUR ---
FBS - 200 PER INSULIN DRIP PROTOCOL DECREASED DRIP TO 1UNIT/HR
--- NOTE | 2020-06-23 07:20 | NUR ---
Report reveived from JV Agarwal for continuity of care
--- NOTE | 2020-06-23 07:27 | NUR ---
Mike Raymundo (son) [phone].
--- NOTE | 2020-06-23 07:30 | NUR ---
SPOKE W/ SON WHIT AVERY AND UPDATED HIM ON PT STATUS AT THIS TIME.
--- NOTE | 2020-06-23 07:31 | NUR ---
REPORT GIVEN TO JV ARIAS FOR TRANSFER OF CARE.
--- NOTE | 2020-06-23 07:58 | NUR ---
Received patient lying in bed, asking for water, oriented x 2, still slightly altered. NKDA, PMH DM2. COVID-19 NEGATIVE IV #18g right AC with 0.45NS @ 150cc/hr. 2nd IV #18g left FA with regular insulin gtt infusing at 3units/hr. AccuCheck bloodsugar fingerstick Q1 hours with insulin drip coverage. color television console monitor with ST, VVS. Resp even and unlabored, HOB elevated, in NAD Joseph catheter draining large amounts kath urine Waiting for an ICU bed/room, will continue to monitor
[2020-06-23] MEDS: NACL 0.45% 1,000 ML IV SCH ×3 (08:02→18:40)
[2020-06-23] MEDS: INSULIN LISPRO SLIDING SCALE 100 UNITS/ML VIAL SUBQ PRN ×2 (12:54→20:59)
[2020-06-23] MEDS ORDERED: cefTRIAXone 1,000 MG VIAL ONE (12:55)
--- NOTE | 2020-06-23 13:20 | NUR ---
Dr. Uribe is evaluating the patient at bedside.
[2020-06-23] MEDS ORDERED: DEXTROSE 50% 50 ML SYR IVP PRN ×2 (13:25→13:30)
--- NOTE | 2020-06-23 13:39 | NUR ---
*FAMILY CONTACT* Spoke with patient's Father Manjinder Raymundo [phone], updated on condition and status. Possible transfer to room
--- NOTE | 2020-06-23 13:56 | NUR ---
Insulin drip discontinued
--- NOTE | 2020-06-23 13:59 | NUR ---
Patient more awake and alert now, asking how long he's been here. Informed patient his father called
[2020-06-23] MEDS ORDERED: CALCIUM CARB 600 MG TAB PO SCH (14:00)
--- NOTE | 2020-06-23 14:04 | NUR ---
Detailed report called to [facility] foe 110-A, questions answered, meds and orders reviewed
--- NOTE | 2020-06-23 14:42 | NUR ---
Calcium carb PO not available from pharmacy, sent to TELE. Will have Christian, RN give med
--- NOTE | 2020-06-23 14:54 | NUR ---
Sister Janette Raymundo [phone]
--- NOTE | 2020-06-23 15:04 | NUR ---
Patient transfered to room 110-A via [facility] with RN and monitoring and evaluation advisor to transport
--- NOTE | 2020-06-23 15:30 | NUR ---
PATIENT ARRIVED ON MST FLOOR FROM ER. PATIENT IN STABLE CONDITION. ON ROOM AIR. AAOX3, SKIN INTACT. WILL CONTINUE TO MONITOR.
[2020-06-23] MEDS ORDERED: INSULIN LANTUS 100 UNITS/ML 10 ML VIAL SUBQ SCH (16:00)
[2020-06-23] MEDS ORDERED: AZIT250T3 PO (16:30)
[2020-06-23] MEDS ORDERED: BLOOD GLUCOSE MONITORING 1 DEV DEV FS SCH (16:30)
--- NOTE | 2020-06-23 17:09 | NUR ---
SCHEDULED MEDICATIONS DUE GIVEN. WILL CONTINUE TO MONITOR.
--- NOTE | 2020-06-23 19:15 | NUR ---
Patient received in bed alert and oriented x 3. No complaint of pain, self repositions for comfort. Rn discussed with patient medical plan of care. Teaching and education of plan of care. Medications action, purpose and side effects. Disease process and interventions. Fall and safety precautions and RN plan of care. Patient receptive to RN instructions and medical plan of care. VSS. No acute distress noted. Will continue with plan of care. VSS.
--- NOTE | 2020-06-23 19:50 | NUR ---
GAVE REPORT TO CHEMISTRY DEPARTMENT CHAIR NURSE FOR CONTINUITY OF CARE. PATIENT IN STABLE CONDITION.
--- NOTE | 2020-06-24 | NUR ---
Patient sleeping during rounding, easily aroused. Vital signs stable. denies any pain or discomfort. Fall and safety precautions maintained. Medications administered as ordered. No adverse effects note. Acyanotic. No acute distress noted.
[2020-06-24] MEDS: NACL 0.45% 1,000 ML IV SCH ×2 (01:20→08:00)
[2020-06-24 04:00] VITALS: BP 123/85
[2020-06-24] MEDS: BLOOD GLUCOSE MONITORING 1 DEV DEV FS SCH ×2 (06:00→11:30)
[2020-06-24] MEDS: INSULIN LISPRO SLIDING SCALE 100 UNITS/ML VIAL SUBQ PRN (06:00)
--- NOTE | 2020-06-24 07:20 | NUR ---
REC'D BEDSIDE ENDORSEMENT FROM NIGHTSHIFT NURSE. WILL PROCEED W/ POC.
[2020-06-24] MEDS ORDERED: INSULIN LANTUS 100 UNITS/ML 10 ML VIAL SUBQ SCH (09:00)
[2020-06-24] MEDS ORDERED: SODIUM PHOS / POTASSIUM PHOS 1 PKT PDR PO SCH (09:00)
[2020-06-24] MEDS ORDERED: ATORVASTATIN 20 MG TAB PO SCH (09:00)
--- NOTE | 2020-06-24 10:38 | NUR ---
ADMINISTERED PRESCRIBED MEDS PER MD ORDER. PATIENT TOLERATED WELL. MEDICATION EDUCATION PROVIDED. PATIENT VERBALIZED UNDERSTANDING. SAFETY MEASURES IN PLACE. WILL CONT TO MONITOR.
--- NOTE | 2020-06-24 11:51 | NUR ---
CALLED PATIENT SON, WHIT , ADVSD PATIENT IS READY TO DISCHARGE AND CAN BE PICKED UP. SON STATED ETA ABOUT 30 MIN.
--- NOTE | 2020-06-24 13:08 | NUR ---
PATIENT IS DISCHARGED. GATHERED BELONGINGS, ASSISTED IN CHANGE OF CLOTHES. PATIENT READ AND SIGNED D/C PAPERWORK. PATIENT VERBALIZED UNDERSTANDING TO VISIT NEAREST ER FOR S/SX OF INCREASED TEMPERATURE, SOB, PAIN, OR SWELLING. REMOVED PAK CATHETER. ESCORTED PATIENT TO PRIVATE VEHICLE. PATIENT IS STABLE.
== END 2020-06-24 13:10 | disposition home or self-care (01) | DRG 420 ==
LOC: MED 04:26 → MTU 08:29
PROVIDERS: ADMIT Hospitalist; ATTEND Hospitalist
DX: E11.10 Type 2 diabetes mellitus with ketoacidosis without coma (principal); G93.41 Metabolic encephalopathy; Z79.4 Long term (current) use of insulin; N17.9 Acute kidney failure, unspecified; Z20.828 Contact with and (suspected) exposure to other viral communicable diseases; E87.5 Hyperkalemia; R00.0 Tachycardia, unspecified; E78.5 Hyperlipidemia, unspecified; K21.9 Gastro-esophageal reflux disease without esophagitis; Z79.899 Other long term (current) drug therapy; D72.829 Elevated white blood cell count, unspecified; E86.0 Dehydration; R65.11 Systemic inflammatory response syndrome (SIRS) of non-infectious origin with acute organ dysfunction
CPT/HCPCS: 36415; 70450; 71045; 80048; 80053; 80305; 81001; 82550; 82803; 82947; 82948; 83036; 83735; 84484; 85025; 93005; 99291; G0480; G0482; J0696; J1815; J7060

== ENCOUNTER 2021-10-01 18:49 | Emergency (ER) | payer OTHER ==
[~2021-10-01] VITALS: Ht 175.3 cm; Wt 73.5 kg
[~2021-10-01 18:49] MED LIST changes: +AZIT250T3 PO; -CLIN300C6 PO
[2021-10-01 18:58] VITALS: BP 114/77
--- NOTE | 2021-10-01 19:05 | NUR ---
PT AMBULATED TO ER BED 9
[2021-10-01] MEDS ORDERED: KETOROLAC 30 MG/ML VIAL IM ONE (19:20)
--- NOTE | 2021-10-01 19:21 | NUR ---
Administered toledol 30mg IM without event. Pt requesting to check his sugar. POC accucheck: 285mg/dL.
[2021-10-01] MEDS ORDERED: LID5T TP (19:32)
[2021-10-01] MEDS ORDERED: ACET-8386 PO (19:32)
[2021-10-01 20:00] VITALS: BP 143/103
--- NOTE | 2021-10-01 20:16 | NUR ---
Patient discharged with v/s stable. Written and verbal after care instructions given and explained. Patient alert, oriented and verbalized understanding of instructions. Ambulatory with steady gait. All questions addressed prior to discharge. ID band removed. Patient advised to follow up with PMD. Rx of lidocaine pathch and norco 3-325 given. Patient educated on indication of medication including possible reaction and side effects. Opportunity to ask questions provided and answered.
== END 2021-10-01 20:16 | disposition home or self-care (01) ==
LOC: MED 18:49
DX: S39.012A Strain of muscle, fascia and tendon of lower back, initial encounter (principal); E11.9 Type 2 diabetes mellitus without complications; Z79.4 Long term (current) use of insulin; Z79.899 Other long term (current) drug therapy; X58.XXXA Exposure to other specified factors, initial encounter; Y93.89 Activity, other specified; Y92.89 Other specified places as the place of occurrence of the external cause; Y99.8 Other external cause status
CPT/HCPCS: 81002; 82948; 96372; 99283; J1885